=== PATIENT | male | born 1980 | race Caucasian/White ===

== ENCOUNTER → 2020-05-17 | Outpatient (CLI) | payer OTHER ==
--- NOTE | 2020-05-17 18:48 | REP ---
INDICATION: WHEEZING. COMPARISON: None. TECHNIQUE: Helical scanning is acquired. 3 mm axial images are generated. Coronal and sagittal MPR and coronal MIP images are generated. 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 There is no evidence of pleural or pericardial effusion. No hilar or mediastinal mass or adenopathy is seen. Normal adrenal glands are seen. Visualized upper abdominal structures are unremarkable. No extra thoracic mass or adenopathy is seen. No tracheobronchial abnormality is observed. On lung window settings, there is linear discoid atelectasis visible in the right middle lobe. Lung ruelas are otherwise clear. No pulmonary mass lesion is seen. There is a pleural based nodule posteriorly in the left upper lobe displayed on page 32 of 112 in series 201 of today's study. This measures 4 mm in greatest diameter. There is a 3 mm similar pleural based opacity in the right upper lobe on page 38. There are minimal pleuroparenchymal fibrotic changes in the right middle lobe laterally. No significant pulmonary nodule is seen. No bony destructive lesion is seen. IMPRESSION: There is platelike atelectasis in the right middle lobe with some pleuroparenchymal fibrosis. Small pleural based nodules. No active cardiopulmonary disease. Consider 1 year follow-up. <Electronically signed by Moody Lovell > 05/17/20 [id number]
== END ==
LOC: M RAD 18:03
PROVIDERS: ATTEND Family Medicine
DX: R91.8 Other nonspecific abnormal finding of lung field (principal)